=== PATIENT | male | born 1965 | race Caucasian/White ===

== ENCOUNTER 2024-09-13 03:55 | Emergency (ER) | payer OTHER ==
[~2024-09-13] VITALS: Ht 167.6 cm; Wt 122.5 kg
[~2024-09-13 03:55] MED LIST: DILAUDID; LISIPOW; PREVACID; SIMVPOW2
--- NOTE | 2024-09-13 04:48 | ED.PDOC ---
History of Present Illness HPI Comments This is a 59-year-old, morbidly obese male, with a history of chronic dyspepsia, Lopez's esophagus, diabetes, GERD, hypertension, and cholecystectomy, that is brought in by ambulance for complaint of LLQ abdominal pain, with associated nausea, vomiting, and constipation. , with nausea and vomiting, since 1200, yesterday. Endorses of history of pain in the past, intermittently, but never as severe as current episode. Last bowel movement she reported to have taken place at 2000, yesterday evening. Reports, usually, having chronic diarrhea. His vitals were within normal limits and stable per EMS report. Patient denies having any hematemesis, urinary symptoms, fever, chills, or further associated symptoms or modifiers. Chief Complaint: Abdominal Pain Time Seen by MD: 04:30 Primary Care Provider: UNKNOWN Reviewed Notes: Nurses Notes, Aircraft Motor Mechanic Notes, Medications, Allergies Allergies: Coded Allergies: Codeine (Verified Allergy, 10/23/10) Uncoded Allergies: PCN (Allergy, 10/23/10) Home Meds Reported Medications [Prevacid] No Conflict Check 10/23/10 [Dilaudid] No Conflict Check 10/23/10 Lisinopril (Lisinopril) Pow 10/23/10 Simvastatin (Simvastatin) Pow 10/23/10 Information Source: Patient, Emergency Med Personnel Mode of Arrival: EMS Severity: Moderate Timing: Hours Duration: Since onset Prehospital treatment: 12 Lead EKG, Obstetrician Gynecologist Review of Systems: REVIEW OF SYSTEMS: No fever, no chills, or fatigue HEENT: No sore throat, no earache, no congestion, no neck pain. Cardiac: No chest pain. No palpitations. Lungs: No shortness of breath, no cough. GI: Left lower quadrant abdominal pain, nausea, vomiting, constipation, no no diarrhea : No dysuria, frequency, or urgency. No hematuria. Musculoskeletal: No joint pain , no joint swelling, no extremity edema. Skin: No rash, no itching. Neuro: No headache, no dizziness, no weakness Vital Signs Vital Signs Date Time Temp Pulse Resp B/P (MAP) Pulse Ox O2 Delivery O2 Flow Rate FiO2 09/13/24 04:11 98.8 87 20 125/85 (98) 99 98.8 Physical Exam General: Awake, alert and oriented. No acute distress. Skin: Skin in warm, dry and intact. Appropriate color for ethnicity. HEENT: The head is normocephalic and atraumatic. Conjunctivae are clear without exudates or hemorrhage. Sclera is non-icteric. EOM are intact. No signs of nystagmus. Eyelids are normal in appearance without swelling or lesions. Oral mucosa is pink and moist Neck: The neck is supple with normal range of motion. No JVD. Cardiac: Heart rate and rhythm are normal. No murmurs, gallops, or rubs are auscultated. Respiratory: No signs of respiratory distress. Lung sounds are clear in all lobe s bilaterally without rales, rhonchi, or wheezes. Abdominal: LLQ tenderness. Abdominal distention. Positive voluntary guarding. Bowel sounds present but are diminished in all 4 quadrants. Abdomen is, otherwise, soft, without rigidity. Extremities: Upper and lower extremities are atraumatic in appearance without deformity or edema. Neurological: The patient is awake, alert and oriented to person, place, and time with normal speech. Speech is clear. There is no facial asymmetry. Psychiatric: Appropriate mood and affect. Good judgement and insight. Past Medical History PAST MEDICAL HISTORY: DM, GERD, HTN Past Medical History (Other): chronic dyspepsia Lopez's esophagus Surgical History: Cholecystectomy Surgical History (Other): shoulder surgery ureteral reconstruction Family History Family History: Unknown Social History Smoker: Non-Smoker Alcohol: Rarely Drugs: Denies Drug Use Lives In: Home Was a procedure done? Was a procedure done?: No Differential Dx Considerations may include: Differential diagnoses considered include: Abdominal aortic aneurysm, LA, esophageal rupture, intestinal obstruction, mesenteric ischemia, perforated viscus or solid organ rupture, CHF with hepatomegaly, pneumonia, abscess, appendicitis, biliary disease, diverticulitis, gastritis, gastroenteritis, hepatitis, hernia, inflammatory bowel disease, pancreatitis, peptic ulcer disease, urinary tract infection, ureteral colic, constipation, GERD, irritable syndrome, abdominal wall pain, nonspecific abdominal pain, herpes zoster, nephrolithiasis. X-Ray, Labs, Meds, VS Vital Signs Date Time Temp Pulse Resp B/P (MAP) Pulse Ox O2 Delivery O2 Flow Rate FiO2 09/13/24 04:11 98.8 87 20 125/85 (98) 99 98.8 09/13/24 04:05 77 Lab Test 09/13/24 04:37 Range/Units White Blood Count 13.9 H 4.4-10.8 10^3/uL Red Blood Count 5.75 4.5-5.90 10^6/uL Hemoglobin 17.5 13.5-17.5 g/dL Hematocrit 50.6 41.0-53.0 % Mean Corpuscular Volume 88.0 80.0-100.0 fL Mean Corpuscular Hemoglobin 30.4 28.0-32.0 pg Mean Corpuscular Hemoglobin Concent 34.5 32.0-36.0 g/dL Red Cell Distribution Width 12.6 11.8-14.3 % Platelet Count 244 140-450 10^3/uL Mean Platelet Volume 8.0 6.9-10.8 fL Neutrophils (%) (Auto) 81.7 H 37.0-80.0 % Lymphocytes (%) (Auto) 10.2 10.0-50.0 % Monocytes (%) (Auto) 6.0 0.0-12.0 % Eosinophils (%) (Auto) 1.6 0.0-7.0 % Basophils (%) (Auto) 0.5 0.0-2.0 % Neutrophils # (Auto) 11.3 H 1.6-8.6 10 ^3/uL Lymphocytes # (Auto) 1.4 0.4-5.4 10 ^3/uL Monocytes # (Auto) 0.8 0-1.3 10 ^3/uL Eosinophils # (Auto) 0.2 0-0.8 10 ^3/uL Basophils # (Auto) 0.1 0-0.2 10 ^3/uL Nucleated Red Blood Cells 0.2 % Sodium Level 136 136-145 mmol/L Potassium Level 4.2 3.5-5.1 mmol/L Chloride Level 98 98-107 mmol/L Carbon Dioxide Level 27 20-31 mmol/L Anion Gap 11 5-15 Blood Urea Nitrogen 7 L 9-23 mg/dL Creatinine 1.16 0.700-1.30 mg/dL Glomerular Filtration Rate Calc 72 >90 mL/min BUN/Creatinine Ratio 6.0 L 10.0-20.0 Serum Glucose 227 H 74-106 mg/dL Calcium Level 10.3 8.7-10.4 mg/dL Lipase 49 12-53 U/L Time of 1ST Reevaluation: 05:00 Reevaluation 1ST: Unchanged Patient Education/Counseling: Other (Need for admission) Family Education/Counseling: No Family Present Change of Shift?: Yes (@0600. Signed out to Dr. Nuno) Departure 1 Departure Time of Disposition: 05:46 Impression: Primary Impression: Small bowel obstruction Disposition: 02 SHORT TERM HOSPITAL Condition: Stable Comments 59-year-old male who presents to the emergency department with abdominal pain & vomiting. CT shows evidence of small-bowel obstruction. NG tube/OG tube ordered in the emergency department. Pending case review with [facility] for transfer/admit orders. Extensive evaluation was performed in attempt to identify or rule out: (See dif ferential diagnosis section) The following tests were ordered, and results were reviewed by me and discussed with patient: (See diagnostic results section) Additional information was gathered from interviewing the following independent historians: EMS personnel Discussion of management or test interpretation with external physician/other qualified health critical care technician: N/A Addressed an acute or chronic illness that poses a threat to life or bodily function: Small-bowel obstruction Decision regarding hospitalization or escalation of hospital level of care: Risk and benefits of admission for further treatment of patient's condition was considered. Due to patient's current clinical condition, high risk of decline and poor outcome if discharged and need for further inpatient management and monitoring, patient will be admitted to the hospital. Parenteral controlled substances: IV fentanyl Critical Care Note Critical Care Time?: No Stability Stability form required: No Heart Score Heart Score: Heart Score Response (Comments) Value History N/A 0 EKG N/A 0 Age N/A 0 Risk Factors N/A 0 Troponin N/A 0 Total 0 I personally scribed for JAY LUNDY MD ([email or web address]) on 09/13/24 at 04:48. Electronically submitted by Ky Ortiz ([email or web address]). JAY LUNDY MD September 13, 2024 04:48
[2024-09-13 04:57] LABS: Basophils # (auto) 0.1 10 ^3/uL (0-0.2); Basophils % (auto) 0.5 % (0.0-2.0); Eosinophils # (auto) 0.2 10 ^3/uL (0-0.8); Eosinophils % (auto) 1.6 % (0.0-7.0); Hematocrit 50.6 % (41.0-53.0); Hemoglobin 17.5 g/dL (13.5-17.5); Lymphocytes # (auto) 1.4 10 ^3/uL (0.4-5.4); Lymphocytes % (auto) 10.2 % (10.0-50.0); Mean Corpuscular Hemoglobin 30.4 pg (28.0-32.0); Mean Corpuscular Hgb Conc. 34.5 g/dL (32.0-36.0); Monocytes # (auto) 0.8 10 ^3/uL (0-1.3); Neutrophils # (auto) 11.3 10 ^3/uL (1.6-8.6); Neutrophils % (auto) 81.7 % (37.0-80.0); Nucleated Red Blood Cells % 0.2 %; Platelet Count (auto) 244 10^3/uL (140-450); Red Blood Cells 5.75 10^6/uL (4.5-5.90); Red Cell Distribution Width 12.6 % (11.8-14.3); White Blood Cell 13.9 10^3/uL (4.4-10.8)
[2024-09-13 05:29] LABS: Potassium 4.2 mmol/L (3.5-5.1); Sodium 136 mmol/L (136-145)
[2024-09-13 05:30] LABS: Anion Gap 11 (5-15); Calcium 10.3 mg/dL (8.7-10.4); Carbon Dioxide 27 mmol/L (20-31)
[2024-09-13 05:34] LABS: Chloride 98 mmol/L (98-107)
[2024-09-13 05:35] LABS: Lipase 49 U/L (12-53)
--- NOTE | 2024-09-13 05:39 | DVH ---
EXAM: CT Abdomen and Pelvis Without Intravenous Contrast CLINICAL INDICATION: LLQ abdominal TECHNIQUE: Axial computed tomography images of the abdomen and pelvis without intravenous contrast. This CT exam was performed using one or more of the following dose reduction techniques: automated exposure control, adjustment of the mA and/or kV according to patient size, and/or use of iterative r econstruction technique. CONTRAST: RADIATION DOSE: CTDIvol = 23.18 mGy, DLP = 1345.65 mGy-cm COMPARISON: None FINDINGS: LUNG BASES: Unremarkable. No mass. No consolidation. ABDOMEN: LIVER: Hepatomegaly with fatty infiltration. GALLBLADDER AND BILE DUCTS: Cholecystectomy. No ductal dilation. PANCREAS: Unremarkable. No ductal dilation. SPLEEN: Unremarkable. No splenomegaly. ADRENALS: Unremarkable. No mass. KIDNEYS AND URETERS: Unremarkable. No obstructing stones. No hydronephrosis. STOMACH AND BOWEL: Multiple dilated small bowel with differential air-fluid levels measuring up to 3.2 cm concerning for small bowel obstruction with possible transition point in the right lower abdom inal quadrant. Fecal retention in the colon consistent with constipation. Colonic diverticulosis wi thout acute diverticulitis. PELVIS: APPENDIX: No findings to suggest acute appendicitis. BLADDER: Unremarkable. No stones. REPRODUCTIVE: Unremarkable as visualized. ABDOMEN and PELVIS: INTRAPERITONEAL SPACE: Unremarkable. No free air. No significant fluid collection. BONES/JOINTS: No acute fracture. No dislocation. SOFT TISSUES: Unremarkable. VASCULATURE: Unremarkable. No abdominal aortic aneurysm. LYMPH NODES: Unremarkable. No enlarged lymph nodes. OTHER FINDINGS: . . IMPRESSION: 1. Multiple dilated small bowel with differential air-fluid levels measuring up to 3.2 cm concerning for small bowel obstruction with possible transition point in the right lower abdominal quadrant. 2. Hepatomegaly with fatty infiltration. 3. Fecal retention in the colon consistent with constipation. 4. Colonic diverticulosis without acute diverticulitis.
[2024-09-13 05:40] LABS: Blood Urea Nitrogen 7 mg/dL (9-23); Glucose 227 mg/dL (74-106)
[2024-09-13] MEDS: ONDANSETRON HCL 4 MG/2 ML VIAL IV ONE (05:46)
[2024-09-13] MEDS: fentaNYL CITRATE 100 MCG/2 ML VL IV ONE (05:51)
[2024-09-13] MEDS: SODIUM CHLORIDE 0.9% 1,000 ML IV ONE (06:23)
--- NOTE | 2024-09-13 07:03 | ECG ---
[facility] Test Date: 2024-09-13 Test Time: 04:05:45 Pat Name: MARILYN SO Department: ED Room: [facility] Gender: M Yard Switcher: LUCAS : 1965 Requested By: JAY LUNDY Order Number: [id number] Reading MD: Roddy Moore Measurements Intervals [employer] Rate: 77 P: 42 OK: 195 QRS: 17 QRSD: 111 T: 23 QT: 365 QTc: 414 Interpretive Statements Sinus rhythm Probable left atrial enlargement Electronically Signed On 09-14-2024 12:47:34 PDT by Roddy Moore Please click the below link to view image of tracing.
[2024-09-13 07:45] VITALS: PULSE 81; RESP 12; O2SAT 95
--- NOTE | 2024-09-13 07:50 | DVHHP2 ---
Review of Systems Allergies: Coded Allergies: Codeine (Verified Allergy, Unknown, 09/13/24) Uncoded Allergies: PCN (Allergy, Unknown, 09/13/24) Exam Vital Signs Vital Signs Date Time Temp Pulse Resp B/P (MAP) Pulse Ox O2 Delivery O2 Flow Rate FiO2 09/13/24 05:51 119/83 09/13/24 05:45 97.6 79 21 96 97.6 Labs/Xrays Labs Test 09/13/24 04:37 Range/Units White Blood Count 13.9 H 4.4-10.8 10^3/uL Red Blood Count 5.75 4.5-5.90 10^6/uL Hemoglobin 17.5 13.5-17.5 g/dL Hematocrit 50.6 41.0-53.0 % Mean Corpuscular Volume 88.0 80.0-100.0 fL Mean Corpuscular Hemoglobin 30.4 28.0-32.0 pg Mean Corpuscular Hemoglobin Concent 34.5 32.0-36.0 g/dL Red Cell Distribution Width 12.6 11.8-14.3 % Platelet Count 244 140-450 10^3/uL Mean Platelet Volume 8.0 6.9-10.8 fL Neutrophils (%) (Auto) 81.7 H 37.0-80.0 % Lymphocytes (%) (Auto) 10.2 10.0-50.0 % Monocytes (%) (Auto) 6.0 0.0-12.0 % Eosinophils (%) (Auto) 1.6 0.0-7.0 % Basophils (%) (Auto) 0.5 0.0-2.0 % Neutrophils # (Auto) 11.3 H 1.6-8.6 10 ^3/uL Lymphocytes # (Auto) 1.4 0.4-5.4 10 ^3/uL Monocytes # (Auto) 0.8 0-1.3 10 ^3/uL Eosinophils # (Auto) 0.2 0-0.8 10 ^3/uL Basophils # (Auto) 0.1 0-0.2 10 ^3/uL Nucleated Red Blood Cells 0.2 % Sodium Level 136 136-145 mmol/L Potassium Level 4.2 3.5-5.1 mmol/L Chloride Level 98 98-107 mmol/L Carbon Dioxide Level 27 20-31 mmol/L Anion Gap 11 5-15 Blood Urea Nitrogen 7 L 9-23 mg/dL Creatinine 1.16 0.700-1.30 mg/dL Glomerular Filtration Rate Calc 72 >90 mL/min BUN/Creatinine Ratio 6.0 L 10.0-20.0 Serum Glucose 227 H 74-106 mg/dL Calcium Level 10.3 8.7-10.4 mg/dL Lipase 49 12-53 U/L Assessment/Plan Assessment/Plan Assessment: Small bowel obstruction, Plan: Admit to Med-Surg, Plan discussed with: Patient My Orders Orders - ANSLEY MENDOZA Procedure Category Date Status Time Admit ADMIT 09/13/24 Verified 07:47 Code Status CODE 09/13/24 Verified 07:47 Ondansetron Hcl PHA 09/13/24 Verified (Zofran) 08:00 Complete Blood Count LAB 09/14/24 Verified 04:00 Comprehensive LAB 09/14/24 Verified Metabolic Panel 04:00 Condition: Critical JOSLYN 09/13/24 Verified 07:47 Glycerin Adult PHA 09/13/24 Verified Suppository (Glycerin 08:00 * Surgical Consult CONS 09/13/24 Verified Date of Service: September 13, 2024 Billing Provider: ANSLEY MENDOZA Common Visit Codes: 08728-[id number] INP/OBS CARE (HIGH) ANSLEY MNEDOZA September 13, 2024 07:50
[2024-09-13] MEDS: ONDANSETRON HCL 4 MG/2 ML VIAL IV PRN (07:59)
[2024-09-13] MEDS: GLYCERIN ADULT RECTAL SUPP PR ONE (08:00)
[2024-09-13] MEDS: MORPHINE SULFATE 4 MG/ML SYR/VIAL IV ONE (09:49)
[2024-09-13 10:09] VITALS: BP 124/72; PULSE 75; RESP 13; TEMP 97.7; O2SAT 95
== END 2024-09-13 10:21 | disposition short-term general hospital (02) ==
LOC: ER 03:55 → UNDOADMIN 07:47 → OVERFLOW 07:47 → UNDODISIN 10:11 → OVERFLOW 10:21
DX: K56.609 Unspecified intestinal obstruction, unspecified as to partial versus complete obstruction (principal); E11.9 Type 2 diabetes mellitus without complications; I10 Essential (primary) hypertension; K21.9 Gastro-esophageal reflux disease without esophagitis; Z98.890 Other specified postprocedural states; Z79.899 Other long term (current) drug therapy; Z88.5 Allergy status to narcotic agent
CPT/HCPCS: 36415; 74176; 80048; 83690; 85025; 93005; 96361; 96374; 96375; 96376; 99285; J2270; J2405; J3010; J7030; G0378